=== PATIENT | male | born 1985 | race Caucasian/White ===

== ENCOUNTER 2021-02-24 15:05 | Emergency (ER) | payer MEDICAID, SELFPAY ==
[2021-02-24 15:06] VITALS: BP 128/80; PULSE 102; RESP 18; TEMP 37.1; O2SAT 95; BMI 23.1
[2021-02-24 15:20] VITALS: BP 128/88; PULSE 102; RESP 16; O2SAT 96
--- NOTE | 2021-02-24 15:25 | PC.NURSE ---
Read and agree with assessment
--- NOTE | 2021-02-24 15:44 | CT_ITS ---
WS: [id number] CT CERVICAL SPINE HISTORY: trauma TECHNIQUE: Contiguous 2.5 mm axial imaging performed through the entire cervical spine. Sagittal and coronal reformats also performed. All CT scans at [facility] use at least one of these do se optimization techniques: automated exposure control; mA and/or kV adjustment per patient size (inc ludes targeted exams where dose is matched to clinical indication); or iterative reconstruction. DLP: 491.08 mGy.cm COMPARISON: None available. Normal cervical alignment. Craniocervical junction, atlantodental interval and C1-C2 alignment is nor mal. Small endplate osteophytes throughout the cervical spine with mild encroachment upon the ventral thec al sac. C2-C3: Normal. C3-C4: Mild LEFT foraminal narrowing due to osteophytes. C4-C5: Shallow central disc protrusion. C5-C6: Bilateral foraminal osteophytes and shallow central disc protrusion. Mild bilateral foraminal stenosis. C6-C7: Normal. C7-T1: Normal. Soft tissues are normal. Lung apices are clear. CT/CT cervical spin wo con* [id number] IMPRESSION: 1. No acute cervical spine fracture. 2. Mild cervical spondylosis. No central stenosis.
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
== END 2021-02-24 16:20 | disposition home or self-care (01) ==
PROVIDERS: Emergency Provider Physician Assistant; PCP Physician Assistant
DX: S09.8XXA Other specified injuries of head, initial encounter (principal); Y04.2XXA Assault by strike against or bumped into by another person, initial encounter
CPT/HCPCS: 70450; 72125; 99283

== ENCOUNTER 2024-03-12 22:51 | Emergency (ER) | payer MEDICAID, SELFPAY ==
[2024-03-12 22:53] VITALS: BP 120/94; PULSE 93; RESP 15; TEMP 36.5; O2SAT 98; BMI 23.1
--- NOTE | 2024-03-12 23:00 | XRR_ITS ---
PROCEDURE INFORMATION: Exam: XR Soft Tissue Neck Exam date and time: 03/12/2024 11:05 PM Age: 38 years old Clinical indication: Other: Aspiration; Additional info: Foreign body TECHNIQUE: Imaging protocol: Radiologic exam of the soft tissues of the neck. COMPARISON: CT cervical spin wo con* [id number] 02/24/2021 4:11 PM FINDINGS: Airway: Normal. No abnormal narrowing. Soft tissues: Normal. Normal epiglottis. Bones/joints: Unremarkable. XR/XR soft tissue neck [id number] IMPRESSION: No acute findings. Negative for radiodense foreign body.
--- NOTE | 2024-03-12 23:00 | ECG_ITS ---
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 Measurements Intervals [place] Rate: 88 P: 59 IA: 147 QRS: 36 QRSD: 105 T: 64 QT: 355 QTc: 432 Interpretive Statements SINUS RHYTHM No previous ECG available for comparison Electronically Signed On 03-13-2024 15:25:59 CDT by Efren Davis M.D. [email or web address] [email or web address] Internet Marketing Solutionsselect medical [facility] [email or web address]/store/NU/[id number] f
--- NOTE | 2024-03-12 23:00 | XRR_ITS ---
PROCEDURE INFORMATION: Exam: XR Chest Exam date and time: 03/12/2024 11:13 PM Age: 38 years old Clinical indication: Other: Aspiration; Additional info: Aspiration/foreign body TECHNIQUE: Imaging protocol: Radiologic exam of the chest. Views: 2 views. COMPARISON: CR (NECK, ) 03/12/2024 11:05 PM FINDINGS: Lungs: Unremarkable. No consolidation. Pleural spaces: Unremarkable. No pleural effusion. No pneumothorax. Heart/Mediastinum: Unremarkable. No cardiomegaly. Bones/joints: Unremarkable. XR/XR chest 2V* [id number] IMPRESSION: No acute findings.
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
[2024-03-12 23:28] LABS: Basophils % 0.4 %; Eosinophils # 0.1 10^3/uL (0.0-0.8); Hematocrit 40.6 % (37-53); Lymphocytes # 1.8 10^3/uL (0.8-4.8); Lymphocytes % 39.4 %; Mean Corpuscular HGB Conc 34.5 g/dL (30-55); Mean Corpuscular Hemoglobin 31.5 pg (27-33); Mean Corpuscular Volume 91.2 fl (82-101); Mean Platelet Volume 9.6 fL (7.4-10.4); Monocytes # 0.4 10^3/uL (0.2-0.9); Monocytes % 8.7 %; Neutrophils # 2.23 10^3/uL (1.8-7.7); Neutrophils % 48.3 %; Nucleated Red Blood Cells % 0 %; Platelet Count 229 10^3/cmm (157-399); Red Blood Count 4.45 10^6/uL (3.85-5.65); Red Cell Distribution Width 12.4 % (12.1-15.1); White Blood Count 4.62 10^3/uL (3.29-11.43)
[2024-03-12 23:47] LABS: Alanine Aminotransferase 34 U/L (0-41); Albumin Level 3.9 g/dL (3.5-5.2); Alkaline Phosphatase 43 U/L (40-130); Aspartate Amino Transferase 30 U/L (0-40); Blood Urea Nitrogen 11 mg/dL (6-20); Calcium 8.4 mg/dL (8.5-10.5); Carbon Dioxide 23 mmol/L (22-29); Chloride 107 mmol/L (98-107); Creatinine Clr Calc Pharmacy 108.3586; Globulin 3.1 g/dL (1.3-4.6); Glomerular Filtration Rate 109.4 mL/min (90-130); Glucose 110 mg/dL (65-115); Osmolality Calculated 292 mOsm/kg (285-295); Sodium 141 mmol/L (136-145); Total Bilirubin 0.6 mg/dL (0.15-1.2)
[2024-03-12 23:50] VITALS: BP 121/92; PULSE 85; RESP 18; O2SAT 98
[2024-03-13] MEDS: potassium chloride ER 20 mEq Tablet 40 MEQ PO (00:25)
[2024-03-13 00:26] VITALS: BP 120/75; PULSE 91; RESP 16; O2SAT 99
== END 2024-03-13 00:51 | disposition home or self-care (01) ==
PROVIDERS: Emergency Provider Internal Medicine; PCP Physician Assistant
DX: T17.920A Food in respiratory tract, part unspecified causing asphyxiation, initial encounter (principal); W44.F3XA Food entering into or through a natural orifice, initial encounter
CPT/HCPCS: 70360; 71046; 80053; 85025; 93005; 99285

== ENCOUNTER 2024-09-25 17:55 | Emergency (ER) | payer SELFPAY ==
[2024-09-25 18:06] VITALS: BP 111/76; PULSE 87; RESP 16; TEMP 36.7; O2SAT 96; BMI 22.3
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
[2024-09-25] MEDS: HYDROcodone-acetaminophen 5-325 mg Tablet 1 TAB PO (19:29)
[2024-09-25 20:28] VITALS: BP 122/85; PULSE 80; O2SAT 100
== END 2024-09-25 20:05 | disposition home or self-care (01) ==
PROVIDERS: Emergency Provider Emergency Medicine; PCP Physician Assistant
DX: S82.401A Unspecified fracture of shaft of right fibula, initial encounter for closed fracture (principal); V86.56XA Driver of dirt bike or motor/cross bike injured in nontraffic accident, initial encounter
CPT/HCPCS: 73610; 99283

== ENCOUNTER → 2024-10-14 16:40 | Outpatient (BNVA) | payer SELFPAY | PROVIDERS: PCP Physician Assistant; Visit Provider Podiatrist Foot & Ankle Surgery | DX: S82.401A Unspecified fracture of shaft of right fibula, initial encounter for closed fracture (principal); X58.XXXA Exposure to other specified factors, initial encounter | CPT/HCPCS: 73610 ==

== ENCOUNTER → 2024-11-06 16:04 | Outpatient (BNVA) | payer BC, MEDICAID, SELFPAY | PROVIDERS: PCP Physician Assistant; Visit Provider Podiatrist Foot & Ankle Surgery | DX: S82.401A Unspecified fracture of shaft of right fibula, initial encounter for closed fracture (principal); X58.XXXA Exposure to other specified factors, initial encounter | CPT/HCPCS: 73610; 99213 ==